=== PATIENT | female | born 2000 | race Caucasian/White ===

== ENCOUNTER 2023-08-27 09:44 | Emergency (ER) | payer SELFPAY ==
[2023-08-27 09:50] VITALS: BP 110/76
[2023-08-27 11:03] VITALS: BMI 24.4
--- NOTE | 2023-08-27 11:35 | ED.GENMED ---
History of Present Illness
General
Chief Complaint: Dizziness
Time Seen by Provider: 08/27/23 11:14
Travel History
Have you had any contact with someone who has COVID-19?: No
Do you have any symptoms of coronavirus? Fever > 100 degrees, chills, cough, shortness of breath, sore throat, loss of taste or smell, muscle aches, or headache?: No
History of Present Illness
History of Present Illness:
23-year-old female presents the emergency department for evaluation of dizziness. She also notes that she has felt a lump on the right posterior scalp for the past 2 days that is tender. She feels as though this might be driving an anxiety
response because she is uncertain what caused this lump. Denies any fevers or chills. Headache radiates from the occiput to the forehead. Headache is minimal at this point. Denies any cold or flu symptoms, denies any chest pain or shortness of
breath.
Past History
Past History
ED Past Medical History: Asthma
ED Past Surgical History: None
Social History
Tobacco: Non-smoker
Alcohol: None
Drug: None
Living: with family
Review of Systems
Review of Systems
Allergies reviewed?: Yes
All Other Systems: ROS reviewed and negative except as documented in HPI and ROS
Phy Exam
Physical Exam
Physical Exam:
GEN: Well appearing, NAD, WDWN
HEENT: Oral mucosa moist, no scleral icterus. Tender and thready right superior/posterior cervical lymph nodes, there is adjacent pustular skin lesion without significant erythema
Cardiac: Regular rate
Lung: No respiratory distress, no tachypnea
MSK: No gross deformity or injuries
Skin: Good color, no pallor or jaundice, no rashes
Neuro: AO x3, moves all extremities freely
Psych: Calm, cooperative
Course
Vital Signs
Initial and Last Documented VS:
Initial Vital Signs
Temp Pulse Resp BP Pulse Ox
98.4 F 112 16 110/76 98
08/27/23 09:50 08/27/23 09:50 08/27/23 09:50 08/27/23 09:50 08/27/23 09:50
Last Documented Vital Signs
Temp Pulse Resp BP Pulse Ox
98.4 F 112 16 110/76 98
08/27/23 09:50 08/27/23 09:50 08/27/23 09:50 08/27/23 09:50 08/27/23 09:50
MDM/Problems Addressed
MDM/Problems Addressed:
Lymphadenitis likely secondary to either viral syndrome or reactive to adjacent pustular skin lesions. Recommend topical Neosporin and ice, ED follow-up if worsening
*Critical Care Note
Total Time (30-74mins, 75-104mins- exclusive of procedures): Not Applicable
ED Attending Note
-
Portions of this chart may have been created with voice recognition software.� Occasional wrong word or��sound alike� substitutions may have occurred due to the inherent limitations of voice recognition software.
Discharge Plan
Departure
Patient Disposition: Home (Routine Discharge)
Date of Disposition: 08/27/23
Time of Disposition: 11:35
Patient with high blood pressure during this ER visit?: No
Discharge Problem:
Acute lymphadenitis
Instructions: Lymphadenitis (DC)
Prescriptions:
No Action
Control Pill
1 tab PO HS
Activity Restrictions/Additional Instructions:
Lymph node swelling is typically caused by viruses. Please apply ice and take 400 mg of ibuprofen every 6-8 hours as needed for pain and headaches. If the symptoms worsen over the next week please consider returning for reevaluation. In most
cases the symptoms will resolve within 5 to 7 days
Interventions
Interventions:
*Risk Screen - Suicide Last Done: 08/27/23 11:04
*General Assessment Last Done: 08/27/23 11:06
*Neglect/Abuse Screening Last Done: 08/27/23 11:04
ED- Fall Risk Assessment Last Done: 08/27/23 11:06
*ED COVID-19 Vaccine History Last Done: 08/27/23 09:50
*Nursing Disposition Last Done: 08/27/23 11:42
ED- Neurological Assessment Last Done: 08/27/23 11:07
ED- Cardiac Assessment Last Done: 08/27/23 11:42
ED Swallowing Screen Last Done: 08/27/23 11:30
Discharge Date and Time
Discharge Date/Time: 08/27/23 11:49
== END 2023-08-27 11:49 | disposition home or self-care (01) ==
LOC: EMR 09:44
PROVIDERS: EMERGENCY PHYSICIAN Emergency Medicine; FAMILY PHYSICIAN Nurse Practitioner Family
DX: L04.9 Acute lymphadenitis, unspecified (principal); J45.909 Unspecified asthma, uncomplicated
CPT/HCPCS: 99282